=== PATIENT | male | born 1960 | race Caucasian/White ===

== ENCOUNTER 2020-03-27 10:49 | Outpatient (CLI) | payer BC, SELFPAY ==
--- NOTE | ~2020-03-27 | XR_ITS ---
EXAMINATION: XR wrist RT min 3V EXAM DATE: 03/27/2020 11:18 INDICATION: Psoriatic arthritis. TECHNIQUE: Right wrist frontal, frontal with ulnar deviation, oblique and lateral projections obtain ed and reviewed. Correlation is made to right hand exam 02/23/2019. FINDINGS: Right wrist scapholunate joint space is maintained. There are no bony erosions identified. There is mild 2nd and 3rd metacarpophalangeal joint primary osteoarthritis. There are no acute fract ures or dislocations identified. There is no subcutaneous gas. The soft tissue is unremarkable. T here are no radiopaque foreign bodies. IMPRESSION: Mild right 2nd, 3rd MCP osteoarthritis. Reviewed, dictated and finalized at location B.
--- NOTE | ~2020-03-27 | XR_ITS ---
EXAMINATION: XR wrist LT min 3V EXAM DATE: 03/27/2020 11:18 INDICATION: Psoriatic arthritis. Carpal tunnel pain. TECHNIQUE: Left wrist frontal, frontal with ulnar deviation, oblique and lateral projections obtained and reviewed. Correlation is made to left hand exam 02/23/2019. FINDINGS: Left wrist scapholunate joint space is maintained. There is mild 1st carpometacarpal and 3r d metacarpophalangeal primary osteoarthritis. There are no bony erosions identified. There are no ac shinnecock fractures or dislocations identified. There is no subcutaneous gas. The soft tissue is unremark able. There are no radiopaque foreign bodies. IMPRESSION: Mild osteoarthritis. Reviewed, dictated and finalized at location B. IMPRESSION: Mild osteoarthritis.
== END 2020-03-27 10:50 | disposition home or self-care (01) ==
PROVIDERS: Visit Provider Plastic Surgery
DX: L40.50 Arthropathic psoriasis, unspecified (principal); M19.032 Primary osteoarthritis, left wrist; M19.031 Primary osteoarthritis, right wrist
CPT/HCPCS: 73110

== ENCOUNTER 2020-05-21 16:30 | Outpatient (RCR) | payer BC, SELFPAY ==
[2020-04-28 14:18] VITALS: PULSE 63
--- NOTE | 2020-05-13 11:20 | PCCPR ---
ABSENT.CALLED IN-NO REASON GIVEN.
--- NOTE | 2020-05-25 10:04 | PCCPR ---
Markie called this morning, he has been having recurrent chest pain and what he states as palpitations . Markie saw Dr. Huang this morning and is scheduled for a cath this . Will hold off on rehab until cath results.
--- NOTE | 2020-06-01 11:13 | PCCPR ---
Markie had cath last and [employer] unable to stent calcified artery due to location on the LAD. Markie will have a followup cath on 06/11 at [facility]. will be absent until cath is complete and able to return to cardiac rehab.
--- NOTE | 2020-06-15 16:13 | PCCPR ---
Addendum entered by Leida Espino RN 06/19/20 09:50: Emergency Bipass surgery and current Dc from program. Spoke with Alber today. States she had a complicated cardiac cath on 06/11/[address] Huang at [facility]. He was unable to to take care of all of his blockage and resulted in emergency bipass surgery on 06/12/20 x 4 vessels. He was just dc'd from the hospital yesterday. He is getting up and walking in his driveway for now. He has a follow up apt with Dr Huang on 06/29/20. He then see's the surgeon on July. Explained we would need a new referral and he could start his rehab over when he is released to do so. Asked if he could give us an update after his visit with Dr Huang. Addendum entered by Sandra Ro RN 06/18/20 15:30: Called again today, no answer, left message. Original Note: Have not heard from Markie regarding cath, called today, left message.
== END 2020-06-19 10:23 | disposition home or self-care (01) ==
LOC: ANHCPREHAB 16:30
PROVIDERS: Visit Provider Internal Medicine Cardiovascular Disease
DX: Z95.5 Presence of coronary angioplasty implant and graft (principal); I25.2 Old myocardial infarction
CPT/HCPCS: 93798

== ENCOUNTER 2020-10-22 15:00 | Outpatient (RCR) | payer BC, SELFPAY ==
[2020-07-24 16:02] VITALS: PULSE 76
[2020-07-24 16:04] VITALS: BP 100/70; PULSE 76; RESP 16; TEMP 36.3; O2SAT 96
[2020-07-27 08:36] LABS: Glucose Point of Care 157 (65-105)
[2020-09-28 13:42] LABS: Glucose Point of Care 102 (65-105)
[2020-09-28 13:42] LABS: Glucose Point of Care 78 (65-105)
[2020-09-28 13:42] LABS: Glucose Point of Care 75 (65-105)
[2020-10-08 13:52] LABS: Glucose Point of Care 85 (65-105)
--- NOTE | 2020-10-12 13:09 | PCCPR ---
Unable to exercise due to low Blood sugar Markie here today in lobby early prior to his class time. As VS taken Markie reported his BS being 82 despite eating 2 slices of pizza at 1100 with a BS of 72 at home.States he ate an apple in route to class. Reviewed the policy of not being able to exercise with BS lower than 100. He had a protein bar with 7 grams of protein and a large orange juice. He chose not to drink prior to class to use just in case. Reminded him the diabetic policy is located in his orientation materials for Exercise guidelines. States he had an apt with his PCP today asking if he should decrease any of diabetic medications and was told his numbers look good. Markie states he has not taken his long acting diabetic injectable med yet today due to lower BS. Encouraged him to check the BS prior to leaving his house so he can eat accordingly.
== END 2020-10-22 23:59 | disposition home or self-care (01) ==
LOC: ANHCPREHAB 15:00
PROVIDERS: Visit Provider Internal Medicine Cardiovascular Disease
DX: Z95.1 Presence of aortocoronary bypass graft (principal); Z95.5 Presence of coronary angioplasty implant and graft
CPT/HCPCS: 93798

== ENCOUNTER 2020-10-28 15:00 | Outpatient (RCR) | payer BC, SELFPAY ==
[2020-10-23 00:03] VITALS: BP 100/70; PULSE 76; RESP 16; TEMP 36.3; O2SAT 96
== END 2020-10-28 19:30 | disposition home or self-care (01) ==
LOC: ANHCPREHAB 15:00
PROVIDERS: Family Provider Internal Medicine; Visit Provider Internal Medicine Cardiovascular Disease
DX: Z95.1 Presence of aortocoronary bypass graft (principal); Z95.5 Presence of coronary angioplasty implant and graft
CPT/HCPCS: 93798

== ENCOUNTER 2023-01-16 13:01 | Emergency (ER) | payer MEDICARE, OTHER, SELFPAY ==
--- NOTE | ~2023-01-16 | XR_ITS ---
XR femur RT min 2V, XR pelvis 1-2V 01/16/2023 14:02 Indication: Status post fall. Right leg hematoma. Procedure: 2 views right femur and AP pelvis Comparison: No prior studies for comparison. Findings: There is osteoarthritis of the hips. Pelvic rings are intact. Sacral foramen are symmetric. There is moderate osteoarthritis of the right knee. Small joint effusion. There is atherosclerosis. No acute fracture or traumatic malalignment. Impression: 1: No acute fracture. Reviewed, dictated and finalized at location A. Impression: 1: No acute fracture. Impression: 1: No acute fracture.
--- NOTE | ~2023-01-16 | XR_ITS ---
XR chest 1V portable 01/16/2023 14:31 Indication: Status post fall. Rib pain. Procedure: AP portable chest Comparison: 02/23/2019 Findings: Status post median sternotomy for CABG. Heart size normal. There is left basilar consolidat ion which may represent atelectasis and/or pneumonia. Small left pleural effusion. No pneumothorax. N o acute osseous abnormality. Impression: 1: Left basilar airspace consolidation which may represent atelectasis and/or pneumonia. Reviewed, dictated and finalized at location A. Impression: 1: Left basilar airspace consolidation which may represent atelectasis and/or p neumonia.
--- NOTE | ~2023-01-16 | XR_ITS ---
XR shoulder RT min 2V, XR clavicle RT 01/16/2023 14:02 (accession [id number]), 01/16/2023 14:01 (accession [id number]) Indication: Right shoulder pain after fall Procedure: 3 views right shoulder and 2 views right clavicle Comparison: No prior studies for comparison. Findings: There is a mildly displaced, comminuted right clavicular fracture involving the mid-distal aspect of the clavicle. Acromioclavicular joint intact. No other fracture or traumatic malalignment. No significant soft tissue abnormality. No foreign bodies. Impression: 1: Mildly displaced, comminuted fracture mid--distal aspect of the right clavicle. Reviewed, dictated and finalized at location A. Impression: 1: Mildly displaced, comminuted fracture mid--distal aspect of the right clavic le. Impression: 1: Mildly displaced, comminuted fracture mid--distal aspect of the right clavic le.
[2023-01-16 13:06] VITALS: BP 133/81; PULSE 90; RESP 16; TEMP 36.8; O2SAT 100
[2023-01-16] MEDS: HYDROcodone/acetaminophen (*CRX) 7.5-325 MG TABLET 1 TAB PO (14:39)
[2023-01-16 14:45] VITALS: BP 111/86; PULSE 74; RESP 16; O2SAT 96
--- NOTE | 2023-01-16 14:50 | ED.FALL ---
HPI - Fall General Chief Complaint: Fall <Ren Avila PA-C - Last Filed: 01/16/23 17:48> Stated Complaint: R shoulder pain, R. leg pain <Ren Avila PA-C - Last Filed: 01/16/23 17:48> Time Seen by Provider: 01/16/23 13:27 <Ren Avila PA-C - Last Filed: 01/16/23 17:48> Source: patient <DANNY Ayon Last Filed: 01/16/23 17:48> Mode of arrival: ambulatory <Ren Avila PA-C - Last Filed: 01/16/23 17:48> Limitations: no limitations <DANNY yAon Last Filed: 01/16/23 17:48> History of Present Illness HPI Narrative: This is a 62-year-old male with PMH of CAD, CHF, CA, diabetes, arthritis who presents the ED with chief complaint of right shoulder injury occurring today just prior to arrival. Patient [place] when he tripped over a small step plan on the ground. States he landed on the right side of his body and right chest. Reports pain to the right shoulder and collarbone. Also reports pain and swelling to the right thigh. Reports the most pain is in the anterior shoulder area. Denies any further site of pain or injury. Denies numbness or weakness. <Ren Avila PA-C - Last Filed: 01/16/23 17:48> Related Data Home Medications: Home Medications Medication Instructions Recorded Confirmed atorvastatin 80 mg tablet (Lipitor) 80 mg PO HS 04/28/20 12/29/21 cholecalciferol (vitamin D3) 50 50 mcg PO WEEKLY 04/28/20 12/29/21 mcg (2,000 unit) tablet (Vitamin D3) metformin 500 mg tablet 500 mg PO BID 04/28/20 12/29/21 pantoprazole 40 mg tablet,delayed 40 mg PO QAM 04/28/20 12/29/21 release (Protonix) aspirin 81 mg tablet 81 mg PO DAILY 07/24/20 12/29/21 clopidogrel 75 mg tablet (Plavix) 75 mg PO DAILY 07/24/20 12/29/21 lisinopril 5 mg tablet 5 mg PO DAILY 07/24/20 12/29/21 metoprolol tartrate 25 mg tablet 12.5 mg PO BID 08/19/20 12/29/21 semaglutide 0.25 mg or 0.5 mg (2 0.5 mg subcut WEEKLY 08/19/20 12/29/21 mg/1.5 mL) subcutaneous pen injector (Ozempic) empagliflozin 25 mg tablet 25 mg PO DAILY 12/29/21 12/29/21 (Jardiance) glimepiride 1 mg tablet 1 mg PO QAM 12/29/21 12/29/21 spironolactone 25 mg tablet 25 mg PO DAILY 12/29/21 12/29/21 <Ren Avila PA-C - Last Filed: 01/16/23 17:48> Allergies/Adverse Reactions: Allergies Allergy/AdvReac Type Severity Reaction Status Date / Time No Known Allergies Allergy Mild Unverified 01/29/08 18:41 <Ren Avila PA-C - Last Filed: 01/16/23 17:48> Review of Systems Review of Systems: CONSTITUTIONAL: Denies fever, chills, or sweats. EYES: Denies visual changes, redness, or discharge. ENT: Denies rhinorrhea, congestion, sore throat, or otalgia. CARDIOVASCULAR: Denies chest pain, palpitations, or edema. RESPIRATORY: Denies cough or dyspnea. GASTROINTESTINAL: Denies abdominal pain, nausea, vomiting, or diarrhea. GENITOURINARY: Denies dysuria or hematuria. SKIN: Denies rash or itching. MUSCULOSKELETAL: See HPI NEUROLOGIC: Denies headache, numbness, dizziness, or weakness. PSYCHIATRIC: Denies anxiety or depression. <Ren Avila PA-C - Last Filed: 01/16/23 17:48> [facility] Past Medical History Medical History: Medical History (Updated 01/16/23 @ 15:22 by Ren Avila PA-C) Arthritis CAD (coronary artery disease) Cancer CHF (congestive heart failure) Diabetes Heart attack Heart disease Olecranon bursitis, left elbow <Ren Avila PA-C - Last Filed: 01/16/23 17:48> Surgical History Surgical History: Surgical History H/O angioplasty H/O heart artery stent H/O shoulder surgery History of ankle surgery <Ren Avila PA-C - Last Filed: 01/16/23 17:48> Family History Family History: Family History Father Hypercholesteremia Hypertension Cancer Mother Hypercholesteremia Hypertension Diabetes mellitus Sibling Hypercholeste
== END 2023-01-16 15:43 | disposition home or self-care (01) ==
PROVIDERS: Emergency Provider Physician Assistant; PCP Internal Medicine
DX: S42.031A Displaced fracture of lateral end of right clavicle, initial encounter for closed fracture (principal); I25.10 Atherosclerotic heart disease of native coronary artery without angina pectoris; I25.2 Old myocardial infarction; I50.9 Heart failure, unspecified; E11.9 Type 2 diabetes mellitus without complications; M19.90 Unspecified osteoarthritis, unspecified site; Z95.5 Presence of coronary angioplasty implant and graft; Z79.82 Long term (current) use of aspirin; Z79.84 Long term (current) use of oral hypoglycemic drugs; Z87.891 Personal history of nicotine dependence; W10.9XXA Fall (on) (from) unspecified stairs and steps, initial encounter
CPT/HCPCS: 71045; 72170; 73000; 73030; 73552; 99284; A4565; A9270